=== PATIENT | female | born 1970 | race Caucasian/White ===

== ENCOUNTER 2018-08-04 11:13 | Emergency (ER) | payer OTHER ==
[~2018-08-04] VITALS: Ht 167.6 cm; Wt 123.4 kg
[2018-08-04] MEDS ORDERED: LEVOTHYROXINE50 MCG PO (11:26)
[2018-08-04] MEDS ORDERED: B12 IM (11:28)
== END 2018-08-04 15:23 | disposition home or self-care (01) ==
LOC: ER 11:13
DX: S86.812A Strain of other muscle(s) and tendon(s) at lower leg level, left leg, initial encounter (principal); X50.0XXA Overexertion from strenuous movement or load, initial encounter; Y93.89 Activity, other specified; Y92.89 Other specified places as the place of occurrence of the external cause; Y99.8 Other external cause status